=== PATIENT | female | born 1965 | race Caucasian/White ===

== ENCOUNTER 2021-02-10 15:41 | Inpatient (IN) | payer MEDICAID ==
[~2021-02-10] VITALS: Ht 172.7 cm; Wt 64.2 kg
[~2021-02-10 15:41] MED LIST: ACET650T17 PO; OLAN2.5T3 PO; OLAN20TA14 PO; OLAN20TA3 PO; PANT40GR PO; PANT40TA3 PO
[2021-02-10] MEDS ORDERED: ACETAMINOPHEN 325 MG TABLET PO PRN (16:30)
[2021-02-10] MEDS ORDERED: ONDANSETRON ODT 4 MG PO PRN (16:30)
[2021-02-10] MEDS ORDERED: BISACODYL 10 MG SUPP PR PRN (16:30)
[2021-02-10] MEDS ORDERED: DOCUSATE 100 MG CAPSULE PO PRN (16:30)
[2021-02-10 17:00] VITALS: BP 100/74
[2021-02-10] MEDS ORDERED: PLEASE ENTER HEIGHT AND WEIGHT MC SCH (17:00)
[2021-02-10] MEDS: LORazepam 1MG TABLET PO PRN (17:48)
[2021-02-10 19:49] VITALS: BP 101/70
[2021-02-11 06:22] LABS: CHOL/HDL RATIO 3.2; FREE T4 (FREE THYROXINE) 1.2 ng/dL (0.76-1.46); LDL/HDL RATIO 1.3 (0.5-3.0)
[2021-02-11 07:57] VITALS: BP 102/69
[2021-02-11] MEDS: POLYETHYLENE GLYCOL 17 GM PACKET PO PRN (09:20)
[2021-02-11] MEDS ORDERED: HYDR25CA PO (11:01)
[2021-02-11] MEDS ORDERED: DOXY100C2 PO (11:01)
[2021-02-11] MEDS ORDERED: AMOX1TAB64 PO (11:01)
[2021-02-11] MEDS: LORazepam 1MG TABLET PO PRN (11:12)
[2021-02-11 11:53] LABS: MICROSCOPIC INDICATED
[2021-02-11] MEDS: OLANZAPINE 5 MG TABLET PO SCH (20:12)
[2021-02-12 07:48] VITALS: BP 104/71
[2021-02-12] MEDS: FLUOXETINE HCL 20 MG CAPSULE PO SCH (08:21)
[2021-02-12 19:36] VITALS: BP 106/75
[2021-02-12] MEDS: OLANZAPINE 5 MG TABLET PO SCH (20:20)
[2021-02-13 07:20] VITALS: BP 93/63
[2021-02-13] MEDS: FLUOXETINE HCL 20 MG CAPSULE PO SCH (08:37)
[2021-02-13] MEDS: POLYETHYLENE GLYCOL 17 GM PACKET PO PRN (08:38)
[2021-02-13] MEDS: LORazepam 1MG TABLET PO PRN (08:45)
[2021-02-13] MEDS ORDERED: AMOXICILLIN/CLAV 875-125MG TABLET PO SCH (13:30)
[2021-02-13] MEDS: AMOXICILLIN/CLAV 875-125MG TABLET PO SCH ×2 (13:30→20:07)
[2021-02-13] MEDS: BUSPIRONE 5 MG TABLET PO SCH ×3 (15:43→20:08)
[2021-02-13 19:25] VITALS: BP 94/63
[2021-02-13] MEDS: OLANZAPINE 5 MG TABLET PO SCH (20:07)
[2021-02-14 07:40] VITALS: BP 107/69
[2021-02-14] MEDS: FLUOXETINE HCL 20 MG CAPSULE PO SCH (08:26)
[2021-02-14] MEDS: BUSPIRONE 5 MG TABLET PO SCH ×3 (08:26→20:27)
[2021-02-14] MEDS: LORazepam 1MG TABLET PO PRN (08:26)
[2021-02-14] MEDS: AMOXICILLIN/CLAV 875-125MG TABLET PO SCH ×2 (08:26→20:27)
[2021-02-14 19:45] VITALS: BP 100/60
[2021-02-14] MEDS: OLANZAPINE 5 MG TABLET PO SCH (20:27)
[2021-02-15 07:40] VITALS: BP 103/70
[2021-02-15] MEDS: BUSPIRONE 5 MG TABLET PO SCH ×3 (08:26→20:04)
[2021-02-15] MEDS: AMOXICILLIN/CLAV 875-125MG TABLET PO SCH ×2 (08:26→20:04)
[2021-02-15] MEDS: FLUOXETINE HCL 20 MG CAPSULE PO SCH (08:26)
[2021-02-15] MEDS: LORazepam 1MG TABLET PO PRN (10:25)
[2021-02-15 20:04] VITALS: BP 95/64
[2021-02-15] MEDS: OLANZAPINE 5 MG TABLET PO SCH (20:04)
[2021-02-16 07:51] VITALS: BP 95/68
[2021-02-16] MEDS: BUSPIRONE 5 MG TABLET PO SCH ×3 (09:01→20:14)
[2021-02-16] MEDS: AMOXICILLIN/CLAV 875-125MG TABLET PO SCH ×2 (09:01→20:14)
[2021-02-16] MEDS: FLUOXETINE HCL 20 MG CAPSULE PO SCH (09:01)
[2021-02-16] MEDS: LORazepam 1MG TABLET PO PRN (09:01)
[2021-02-16 19:28] VITALS: BP 85/59
[2021-02-16] MEDS: OLANZAPINE 5 MG TABLET PO SCH (20:14)
[2021-02-17 07:41] VITALS: BP 101/75
[2021-02-17] MEDS: AMOXICILLIN/CLAV 875-125MG TABLET PO SCH ×2 (08:19→20:26)
[2021-02-17] MEDS: LORazepam 1MG TABLET PO PRN ×2 (08:20→16:21)
[2021-02-17] MEDS: FLUOXETINE HCL 20 MG CAPSULE PO SCH (08:20)
[2021-02-17] MEDS: BUSPIRONE 5 MG TABLET PO SCH ×3 (08:20→20:27)
[2021-02-17] MEDS ORDERED: BUSP5TAB2 PO (13:45)
[2021-02-17] MEDS ORDERED: OLAN5TAB9 PO (13:45)
[2021-02-17] MEDS ORDERED: AMOX1TAB12 PO (13:45)
[2021-02-17] MEDS ORDERED: FLUO20CA23 PO (13:45)
[2021-02-17 20:08] VITALS: BP_SYST 89; BP_SYST 90; BP_DIAS 60; BP_DIAS 64
[2021-02-17] MEDS: OLANZAPINE 5 MG TABLET PO SCH (20:27)
[2021-02-18 07:29] VITALS: BP 110/73
[2021-02-18] MEDS: FLUOXETINE HCL 20 MG CAPSULE PO SCH (08:09)
[2021-02-18] MEDS: BUSPIRONE 5 MG TABLET PO SCH (08:09)
[2021-02-18] MEDS: AMOXICILLIN/CLAV 875-125MG TABLET PO SCH (08:09)
[2021-02-18] MEDS: LORazepam 1MG TABLET PO PRN (08:09)
== END 2021-02-18 10:06 | disposition home or self-care (01) | DRG 885 ==
LOC: 3E 16:38
PROVIDERS: ADMIT Psychiatry & Neurology Psychosomatic Medicine; ATTEND Psychiatry & Neurology Psychosomatic Medicine
DX: F25.0 Schizoaffective disorder, bipolar type (principal); R45.851 Suicidal ideations; F25.1 Schizoaffective disorder, depressive type; F41.1 Generalized anxiety disorder; F63.9 Impulse disorder, unspecified; R45.850 Homicidal ideations; W18.39XA Other fall on same level, initial encounter; S00.83XA Contusion of other part of head, initial encounter; Z79.899 Other long term (current) drug therapy; Z81.8 Family history of other mental and behavioral disorders; Z90.49 Acquired absence of other specified parts of digestive tract; Z91.5 Personal history of self-harm; Y93.89 Activity, other specified; Y92.89 Other specified places as the place of occurrence of the external cause; Y99.8 Other external cause status
CPT/HCPCS: 36415; 71045; 80061; 81001; 82140; 84439; 84443; 87077; 87086; 87186; 93005

== ENCOUNTER 2021-03-03 12:27 | Inpatient (IN) | payer MEDICAID ==
[~2021-03-03] VITALS: Ht 172.7 cm; Wt 63.0 kg
[~2021-03-03 12:27] MED LIST changes: +AMOX1TAB12 PO; +AMOX1TAB64 PO; +BUSP5TAB2 PO; +DOXY100C2 PO; +FLUO20CA23 PO; +HYDR25CA PO; +OLAN5TAB9 PO
[2021-03-03] MEDS ORDERED: ONDANSETRON ODT 4 MG PO PRN (13:00)
[2021-03-03] MEDS ORDERED: POLYETHYLENE GLYCOL 17 GM PACKET PO PRN (13:00)
[2021-03-03] MEDS ORDERED: ACETAMINOPHEN 325 MG TABLET PO PRN (13:00)
[2021-03-03] MEDS ORDERED: BISACODYL 10 MG SUPP PR PRN (13:00)
[2021-03-03] MEDS ORDERED: DOCUSATE 100 MG CAPSULE PO PRN (13:00)
[2021-03-03] MEDS ORDERED: PLEASE ENTER HEIGHT AND WEIGHT MC SCH (14:30)
[2021-03-03 14:41] VITALS: BP 101/71
[2021-03-03] MEDS: BUSPIRONE 5 MG TABLET PO SCH ×2 (16:20→20:13)
[2021-03-03] MEDS ORDERED: OLANZAPINE 5 MG TABLET PO SCH (21:00)
[2021-03-04] MEDS: LORazepam 1MG TABLET PO PRN ×2 (05:18→15:11)
[2021-03-04 07:41] VITALS: BP 115/76
[2021-03-04] MEDS: FLUOXETINE HCL 20 MG CAPSULE PO SCH (08:38)
[2021-03-04] MEDS: BUSPIRONE 5 MG TABLET PO SCH ×3 (08:38→20:52)
[2021-03-04 17:39] LABS: MICROSCOPIC INDICATED
[2021-03-04 19:35] VITALS: BP 92/65
[2021-03-04] MEDS ORDERED: OLANZAPINE 5 MG TABLET PO SCH (21:00)
[2021-03-05 07:45] VITALS: BP 102/60
[2021-03-05] MEDS: BUSPIRONE 5 MG TABLET PO SCH ×3 (08:23→21:33)
[2021-03-05] MEDS: FLUOXETINE HCL 20 MG CAPSULE PO SCH (08:23)
[2021-03-05] MEDS: LORazepam 1MG TABLET PO PRN (09:13)
[2021-03-05] MEDS: PALIPERIDONE 3 MG TAB.ER.24 PO SCH (16:28)
[2021-03-05 19:20] VITALS: BP 90/66
[2021-03-06 07:58] VITALS: BP 105/71
[2021-03-06] MEDS: PALIPERIDONE 3 MG TAB.ER.24 PO SCH (08:20)
[2021-03-06] MEDS: BUSPIRONE 5 MG TABLET PO SCH ×3 (08:20→20:12)
[2021-03-06] MEDS: FLUOXETINE HCL 20 MG CAPSULE PO SCH (08:20)
[2021-03-06] MEDS: LORazepam 1MG TABLET PO PRN (13:58)
[2021-03-06] MEDS ORDERED: LORazepam 1MG TABLET ONE (13:58)
[2021-03-06 19:27] VITALS: BP 103/72
[2021-03-07 07:42] VITALS: BP 109/76
[2021-03-07] MEDS: FLUOXETINE HCL 20 MG CAPSULE PO SCH (08:23)
[2021-03-07] MEDS: PALIPERIDONE 3 MG TAB.ER.24 PO SCH (08:23)
[2021-03-07] MEDS: BUSPIRONE 5 MG TABLET PO SCH ×3 (08:23→20:03)
[2021-03-07] MEDS: LORazepam 1MG TABLET PO PRN (11:02)
[2021-03-07 19:30] VITALS: BP 109/70
[2021-03-08 08:15] VITALS: BP 107/77
[2021-03-08] MEDS: PALIPERIDONE 3 MG TAB.ER.24 PO SCH (09:11)
[2021-03-08] MEDS: BUSPIRONE 5 MG TABLET PO SCH ×3 (09:11→20:13)
[2021-03-08] MEDS: FLUOXETINE HCL 20 MG CAPSULE PO SCH (09:11)
[2021-03-08] MEDS: LORazepam 1MG TABLET PO PRN (10:32)
[2021-03-08 19:56] VITALS: BP 110/75
[2021-03-09] MEDS: LORazepam 1MG TABLET PO PRN (06:58)
[2021-03-09 07:33] VITALS: BP 118/83
[2021-03-09] MEDS: BUSPIRONE 5 MG TABLET PO SCH (08:57)
[2021-03-09] MEDS: FLUOXETINE HCL 20 MG CAPSULE PO SCH (08:57)
[2021-03-09] MEDS: PALIPERIDONE 3 MG TAB.ER.24 PO SCH (09:00)
[2021-03-09] MEDS ORDERED: PALI3TAB11 PO (13:44)
[2021-03-09] MEDS ORDERED: HYDR50CA2 PO (13:44)
[2021-03-09] MEDS ORDERED: HYDROXYZINE PAMOATE 50MG CAP PO PRN (14:00)
== END 2021-03-09 14:30 | disposition home or self-care (01) | DRG 885 ==
LOC: 3E 14:08
PROVIDERS: ADMIT Psychiatry & Neurology Psychosomatic Medicine; ATTEND Psychiatry & Neurology Psychosomatic Medicine
DX: F25.0 Schizoaffective disorder, bipolar type (principal); F41.1 Generalized anxiety disorder; F63.9 Impulse disorder, unspecified; G89.29 Other chronic pain
CPT/HCPCS: 81001; 87086

== ENCOUNTER 2021-04-10 17:28 | Inpatient (IN) | payer MEDICAID ==
[~2021-04-10] VITALS: Ht 165.1 cm; Wt 60.5 kg
[~2021-04-10 17:28] MED LIST changes: +HYDR50CA2 PO; +OLAN5TAB69 PO; -OLAN5TAB9 PO; +PALI3TAB11 PO
[2021-04-10] MEDS ORDERED: POLYETHYLENE GLYCOL 17 GM PACKET PO PRN (18:00)
[2021-04-10] MEDS ORDERED: BISACODYL 10 MG SUPP PR PRN (18:00)
[2021-04-10] MEDS ORDERED: DOCUSATE 100 MG CAPSULE PO PRN (18:00)
[2021-04-10] MEDS ORDERED: ONDANSETRON ODT 4 MG PO PRN (18:00)
[2021-04-10] MEDS ORDERED: ACETAMINOPHEN 325 MG TABLET PO PRN (18:00)
[2021-04-11 04:21] VITALS: BP 105/74
[2021-04-11 07:19] VITALS: BP 107/76
[2021-04-11] MEDS ORDERED: TRAZ-175 PO (11:59)
[2021-04-11] MEDS ORDERED: OLAN10TA3 PO (11:59)
[2021-04-11] MEDS: FLUOXETINE HCL 20 MG CAPSULE PO SCH (12:25)
[2021-04-11] MEDS: PALIPERIDONE 6 MG TAB.ER.24 PO SCH (12:25)
[2021-04-11] MEDS: BUSPIRONE 5 MG TABLET PO SCH ×3 (12:25→20:16)
[2021-04-11 14:20] LABS: MICROSCOPIC INDICATED
[2021-04-11 19:38] VITALS: BP 105/78
[2021-04-12 07:11] VITALS: BP 91/62
[2021-04-12] MEDS: FLUOXETINE HCL 20 MG CAPSULE PO SCH (08:28)
[2021-04-12] MEDS: PALIPERIDONE 6 MG TAB.ER.24 PO SCH (08:28)
[2021-04-12] MEDS: BUSPIRONE 5 MG TABLET PO SCH ×3 (08:28→20:16)
[2021-04-12 19:48] VITALS: BP 105/71
[2021-04-13 07:17] VITALS: BP 109/70
[2021-04-13] MEDS: FLUOXETINE HCL 20 MG CAPSULE PO SCH (08:50)
[2021-04-13] MEDS: BUSPIRONE 5 MG TABLET PO SCH ×3 (08:50→20:08)
[2021-04-13] MEDS: PALIPERIDONE 6 MG TAB.ER.24 PO SCH (08:50)
[2021-04-13 19:27] VITALS: BP 110/80
[2021-04-13] MEDS: hydrOXyzine 50MG TABLET PO PRN (20:08)
[2021-04-14 07:31] VITALS: BP 107/71
[2021-04-14] MEDS: PALIPERIDONE 6 MG TAB.ER.24 PO SCH (08:33)
[2021-04-14] MEDS: FLUOXETINE HCL 20 MG CAPSULE PO SCH (08:33)
[2021-04-14] MEDS: BUSPIRONE 5 MG TABLET PO SCH ×3 (08:34→19:56)
[2021-04-14] MEDS: hydrOXyzine 50MG TABLET PO PRN ×2 (09:22→19:56)
[2021-04-14 19:24] VITALS: BP 100/67
[2021-04-15 07:28] VITALS: BP 97/68
[2021-04-15] MEDS: FLUOXETINE HCL 20 MG CAPSULE PO SCH (08:20)
[2021-04-15] MEDS: PALIPERIDONE 6 MG TAB.ER.24 PO SCH (08:20)
[2021-04-15] MEDS: BUSPIRONE 5 MG TABLET PO SCH ×3 (08:20→20:31)
[2021-04-15] MEDS: hydrOXyzine 50MG TABLET PO PRN (09:45)
[2021-04-15] MEDS ORDERED: PALI6TAB5 PO (16:41)
[2021-04-15] MEDS ORDERED: FLUO20CA23 PO (16:41)
[2021-04-15] MEDS ORDERED: HYDR50TA99 PO (16:41)
[2021-04-15] MEDS ORDERED: BUSP5TAB2 PO (16:41)
[2021-04-15 19:31] VITALS: BP 103/71
[2021-04-16 07:43] VITALS: BP 105/71
[2021-04-16] MEDS: PALIPERIDONE 6 MG TAB.ER.24 PO SCH (08:23)
[2021-04-16] MEDS: FLUOXETINE HCL 20 MG CAPSULE PO SCH (08:23)
[2021-04-16] MEDS: BUSPIRONE 5 MG TABLET PO SCH (08:23)
== END 2021-04-16 14:14 | disposition home or self-care (01) | DRG 885 ==
LOC: 3E 04-11 04:03
PROVIDERS: ADMIT Psychiatry & Neurology Psychosomatic Medicine; ATTEND Psychiatry & Neurology Psychosomatic Medicine
DX: F25.1 Schizoaffective disorder, depressive type (principal); F63.9 Impulse disorder, unspecified; G89.29 Other chronic pain; R10.9 Unspecified abdominal pain; K59.00 Constipation, unspecified; F41.1 Generalized anxiety disorder; Z86.718 Personal history of other venous thrombosis and embolism; Z79.899 Other long term (current) drug therapy; Z79.01 Long term (current) use of anticoagulants; Z91.5 Personal history of self-harm
CPT/HCPCS: 81001; 87086; 93005